=== PATIENT | male | born 1955 | race Caucasian/White ===

== ENCOUNTER 2024-10-28 17:37 | Emergency (ER) | payer MEDICARE, OTHER ==
[~2024-10-28] VITALS: Ht 172.7 cm; Wt 93.5 kg
[2024-10-28] MEDS ORDERED: ketorolac trometh 15mg/ml vial 15 MG/ML ML IM ONE (19:15)
[2024-10-28] MEDS ORDERED: METH-798 PO (19:22)
[2024-10-28] MEDS ORDERED: PRED20TA PO (19:22)
[2024-10-28] MEDS: ketorolac trometh 30MG/ML vial 30 MG/ML VIAL IM ONE (19:30)
[2024-10-28 19:54] VITALS: BP 150/62; PULSE 70; RESP 18; TEMP 98.9; O2SAT 99
== END 2024-10-28 19:55 | disposition home or self-care (01) ==
LOC: ER 17:37
DX: M54.12 Radiculopathy, cervical region (principal)
CPT/HCPCS: 96372; 99283; J1885

== ENCOUNTER 2024-10-30 07:02 | Outpatient (CLI) | payer MEDICARE, OTHER ==
[~2024-10-30 07:02] MED LIST: METH-798 PO; PRED20TA PO
== END 2024-10-30 23:59 | disposition home or self-care (01) ==
LOC: MRI02 07:02
PROVIDERS: ATTEND Emergency Medical Technician, Paramedic
DX: M50.13 Cervical disc disorder with radiculopathy, cervicothoracic region (principal); M50.33 Other cervical disc degeneration, cervicothoracic region; M25.78 Osteophyte, vertebrae; M47.22 Other spondylosis with radiculopathy, cervical region; M48.03 Spinal stenosis, cervicothoracic region
CPT/HCPCS: 72141